=== PATIENT | male | born 1990 | race Caucasian/White ===

== ENCOUNTER 2017-04-12 16:00 | Emergency (ER) | payer OTHER ==
[2017-04-12 16:19] VITALS: BP 120/77
[2017-04-12] MEDS ORDERED: AMOX/CLAV 875 MG/125 MG TABLET PO STA (17:59)
--- NOTE | 2017-04-12 18:02 | ED Physician Documentation ---
PD HPI ANIMAL BITE - Stated complaint Stated Complaint: R HAND INJ/LAC - Chief complaint Chief Complaint: Wound - History obtained from History obtained from: Patient - History of Present Illness Location of injury(ies): Other (Right-handed gentleman, up-to-date on tetanus, his 2 dogs were fighting, both are healthy and he was bitten to the right hand.) Timing - onset: Today Review of Systems Constitutional: reports: Reviewed and negative Nose: reports: Reviewed and negative Throat: reports: Reviewed and negative PD PAST MEDICAL HISTORY - Past Medical History Past Medical History: Yes Cardiovascular: None Respiratory: None Neuro: None Endocrine/Autoimmune: None GI: None : None, Other HEENT: None Psych: None Musculoskeletal: None Derm: None - Past Surgical History Past Surgical History: Yes Ortho: Other - Present Medications Home Medications: Ambulatory Orders Medication Instructions Recorded Confirmed Amox/Clav 875/125 [Augmentin] 1 each PO Q12H #14 tablet 04/12/17 - Allergies Allergies/Adverse Reactions: Allergies Allergy/AdvReac Type Severity Reaction Status Date / Time No Known Drug Allergies Allergy Verified 04/12/17 18:19 - Social History Does the pt smoke?: No Smoking Status: Never smoker Does the pt drink ETOH?: No Does the pt have substance abuse?: No - Immunizations Immunizations are current?: Yes - POLST Patient has POLST: No PD ED PE NORMAL - Vitals Vital signs reviewed: Yes - General General: Alert and oriented X 3, No acute distress - Extremities Extremities: Other (There are a few puncture wounds on the right hand, mostly very small and superficial, the only wound of concern is on the medial side of the right fourth finger at the level of the PIP there is a laceration there that seems fairly deep, on exploration there was no foreign body, he had good strength in flexion and extensor tendon strength and normal sensation and cap refill at both sides of the tip.) - Neuro Neuro: Alert and oriented X 3, Normal speech - Psych Psych: Normal mood, Normal affect Results - Vitals Vitals: Vital Signs - 24 hr 04/12/17 16:17 Temperature 36.9 C Heart Rate 90 Respiratory 14 Rate Blood Pressure 120/77 O2 Saturation 99 Oxygen O2 Source Room air Procedures - Laceration (location) R 4th finger Length in cm: 1.5 Wound type: Linear Neurovascular status: Sensory intact, Motor intact, Vascular intact Tendon involvement: Tendon intact Anesthesia: Lidocaine 1%, With bicarb Wound Preparation: Irrigated copiously NS Skin layer closure: Nylon, Interrupted, Size #-0 - enter number (4-0), Sutures - enter # (2) Other: Patient tolerated well, No complications, Neurovascular intact, Tetanus UTD Complexity: Simple Departure - Departure Disposition: 01 Home, Self Care Clinical Impression: Animal bite with open wound Condition: Good Record reviewed to determine appropriate education?: Yes Instructions: ED Bite Animal General Prescriptions: Amox/Clav 875/125 [Augmentin] 1 each PO Q12H #14 tablet Comments: Come back for any signs of infection which would include: Redness, swelling, drainage, increased pain, or fevers. Follow-up with your physician in 10-14 days for suture removal.
[2017-04-12] MEDS ORDERED: BUFFERED LIDOCAINE 10 ML SYRINGE ONE (18:03)
[2017-04-12] MEDS ORDERED: AMOX/CLAV 875 MG/125 MG TABLET PO ONE (18:13)
--- NOTE | 2017-04-12 19:08 | XRAY Report ---
EXAM: RIGHT HAND RADIOGRAPHY EXAM DATE: 04/12/2017 06:41 PM. CLINICAL HISTORY: Dog bites to right hand, worst right fourth finger. COMPARISON: None. TECHNIQUE: 3 views. FINDINGS: Bones: Normal. No fractures or bone lesions. Joints: Normal. No subluxations. Soft Tissues: Normal. No soft tissue swelling. IMPRESSION: Normal hand radiography. [facility] Referring Provider Line: [phone] SITE ID: [id number]
--- NOTE | 2017-04-12 19:08 | XRAY Preliminary Report ---
Exam: XR Hand 3 View RT IMPRESSION: Normal hand radiography. [facility] SITE ID: [id number]
== END 2017-04-12 18:47 | disposition home or self-care (01) ==
LOC: ED 16:00
DX: S61.204A Unspecified open wound of right ring finger without damage to nail, initial encounter (principal); W54.0XXA Bitten by dog, initial encounter; Y93.89 Activity, other specified
CPT/HCPCS: 12001; 73130; 99283; A9270